=== PATIENT | male | born 2000 | race Two or more races ===

== ENCOUNTER 2023-09-14 02:13 | Emergency (ER) | payer OTHER ==
[~2023-09-14] VITALS: Ht 172.7 cm; Wt 63.5 kg
[2023-09-14] MEDS ORDERED: LIDOCAINE HCL 1% 10ML VIAL ONE (02:56)
[2023-09-14] MEDS ORDERED: MUPIROCIN1 G1 TOP (04:52)
[2023-09-14] MEDS ORDERED: CEPHALEXIN750 MG PO (04:52)
== END 2023-09-14 04:57 | disposition home or self-care (01) ==
LOC: ER 02:15
DX: S60.411A Abrasion of left index finger, initial encounter (principal); W26.0XXA Contact with knife, initial encounter; Y93.89 Activity, other specified; Y92.89 Other specified places as the place of occurrence of the external cause; Y99.9 Unspecified external cause status